=== PATIENT | female | born 1960 | race Caucasian/White ===

== ENCOUNTER 2018-06-28 21:59 | Inpatient (IN) | payer MEDICAID ==
[~2018-06-28] VITALS: Ht 180.3 cm; Wt 140.0 kg
[2018-06-28] MEDS ORDERED: cloNIDine HCL 0.1 MG TAB PO ONE (22:30)
[2018-06-28 23:06] LABS: Basophils # (auto) 0.1 uL; Lymphocytes # (auto) 1.6 uL; Monocytes # (auto) 0.6 uL
[2018-06-28 23:08] LABS: Eosinophils # (auto) 0.2 uL; Eosinophils % (auto) 3.1 % (0.0-7.0); Hematocrit 34.5 % (36.0-46.0); Hemoglobin 11.4 g/dL (12.2-16.2); Lymphocytes % (auto) 21.5 % (10.0-50.0); Mean Corpuscular Hemoglobin 24.7 pg (28.0-32.0); Mean Corpuscular Volume 74.9 fL (80.0-100.0); Monocytes % (auto) 8.7 % (0.0-12.0); Neutrophils # (auto) 4.8 uL; Neutrophils % (auto) 65.7 % (37.0-80.0); Nucleated Red Blood Cells % 0.3 %; Platelet Count (auto) 191 10^3/uL (140-450); Red Blood Cells 4.61 10^6/uL (4.0-5.20); Red Cell Distribution Width 17.2 % (11.8-14.3); White Blood Cell 7.3 10^3/uL (4.4-10.8)
[2018-06-28 23:24] LABS: INR 0.97 (0.9-1.15); Partial Thromboplastin Time 29.1 sec (23.78-33.04); Prothrombin Time 10.4 sec (9.27-12.13)
[2018-06-28 23:29] LABS: Alanine Aminotransferase 38 U/L (13-56); Albumin 3.4 g/dL (3.4-5.0); Anion Gap 9 (5-15); Aspartate Aminotransferase 36 U/L (15-37); BUN/Creatinine Ratio 11.7; Blood Urea Nitrogen 11 mg/dL (7-18); Calcium 8.1 mg/dL (8.5-10.1); Carbon Dioxide 29 mmol/L (21-32); Chloride 100 mmol/L (98-107); GFR African American 79 mL/min; GFR Non-African American 65 mL/min; Glucose 102 mg/dL (74-106); Magnesium 2.5 mg/dL (1.6-2.6); Potassium 3.8 mmol/L (3.5-5.1); Sodium 138 mmol/L (136-145)
[2018-06-28] MEDS ORDERED: LEVOFLOXACIN 750MG 150 ML IV ONE (23:30)
[2018-06-28 23:34] LABS: Alkaline Phosphatase 104 U/L (45-117); Bilirubin, Total 1.2 mg/dL (0.2-1.0); Total Protein 8.1 g/dL (6.4-8.2)
[2018-06-29] MEDS ORDERED: IPRATROPIUM BROM 0.5 MG/2.5ML INH SOL NEB ONE
[2018-06-29] MEDS ORDERED: ALBUTEROL SULF 2.5 MG/0.5ML(0.5%) NEB SOLN NEB ONE
[2018-06-29] MEDS ORDERED: DOCUSATE SOD 100 MG CAP PO PRN (01:30)
[2018-06-29] MEDS ORDERED: ONDANSETRON HCL 4 MG/2 ML VIAL IV PRN (01:30)
[2018-06-29 03:33] LABS: Urine Bacteria MANY /hpf (None Seen); Urine Blood Negative /uL (Negative); Urine Mucus FEW (None Seen); Urine Specific Gravity 1.024 (1.001-1.035); Urine WBC 23 /hpf (0 - 5)
[2018-06-29] MEDS: ALBUTEROL SULF 2.5 MG/0.5ML(0.5%) NEB SOLN NEB PRN ×2 (06:59→10:59)
[2018-06-29] MEDS: IPRATROPIUM BROM 0.5 MG/2.5ML INH SOL NEB PRN ×2 (06:59→10:59)
[2018-06-29 09:34] VITALS: BP 144/83
[2018-06-29] MEDS: ENOXAPARIN SOD 40 MG/0.4 ML SYRINGE SC SCH ×2 (09:59→20:57)
[2018-06-29] MEDS ORDERED: FAMOTIDINE 20 MG TAB PO SCH (10:00)
[2018-06-29 12:08] VITALS: BP 141/76
[2018-06-29] MEDS ORDERED: AZITHROMYCIN 250 MG TAB PO ONE (12:45)
[2018-06-29] MEDS ORDERED: IPRATROPIUM BROM 0.5 MG/2.5ML INH SOL NEB SCH (14:00)
[2018-06-29] MEDS ORDERED: ALBUTEROL SULF 2.5 MG/0.5ML(0.5%) NEB SOLN NEB SCH (14:00)
[2018-06-29 16:51] VITALS: BP 148/83
[2018-06-29] MEDS: methylPREDNISolone SOD SUCC 125 MG/2 ML VL IV SCH (17:51)
[2018-06-29] MEDS ORDERED: PANT40T PO (17:57)
[2018-06-29] MEDS ORDERED: LEVO-28 PO (17:57)
[2018-06-29] MEDS ORDERED: CYCL1TAB18 PO (17:57)
[2018-06-29] MEDS ORDERED: GABA300C10 PO (17:57)
[2018-06-29] MEDS ORDERED: POTA10TA51 PO (17:57)
[2018-06-29] MEDS ORDERED: AZIT250T8 PO (17:57)
[2018-06-29] MEDS ORDERED: NYSTOIN10 TOP (17:57)
[2018-06-29] MEDS ORDERED: LOSA-46 PO (17:57)
[2018-06-29] MEDS ORDERED: BUDE0.5S IN (17:57)
[2018-06-29] MEDS: ALBUTEROL SULF 2.5 MG/0.5ML(0.5%) NEB SOLN NEB SCH (19:28)
[2018-06-29] MEDS: IPRATROPIUM BROM 0.5 MG/2.5ML INH SOL NEB SCH (19:28)
[2018-06-29 20:00] VITALS: BP 180/104
[2018-06-29] MEDS: cloNIDine HCL 0.1 MG TAB PO PRN (20:57)
[2018-06-29 22:00] VITALS: BP 180/104
[2018-06-29] MEDS: BUDESONIDE (INHALATION) 0.5 MG/2 ML NEB NEB SCH (22:08)
[2018-06-30] MEDS: methylPREDNISolone SOD SUCC 125 MG/2 ML VL IV SCH ×5 (02:01→23:46)
[2018-06-30] MEDS: LEVOFLOXACIN 500MG 100 ML IV SCH ×2 (02:01→23:46)
[2018-06-30] MEDS ORDERED: CYCLOBENZAPRINE HCL 10 MG TAB PO ONE (03:00)
[2018-06-30] MEDS: cloNIDine HCL 0.1 MG TAB PO PRN ×3 (03:50→18:09)
[2018-06-30 05:00] VITALS: BP 138/86
[2018-06-30 05:01] LABS: Basophils # (auto) 0 uL; Eosinophils # (auto) 0 uL; Eosinophils % (auto) 0.1 % (0.0-7.0); Hematocrit 32.8 % (36.0-46.0); Hemoglobin 10.8 g/dL (12.2-16.2); Lymphocytes # (auto) 0.5 uL; Monocytes # (auto) 0.1 uL; Neutrophils # (auto) 4.1 uL; Nucleated Red Blood Cells % 0.1 %; White Blood Cell 4.7 10^3/uL (4.4-10.8)
[2018-06-30 05:02] LABS: Basophils % (auto) 0.1 % (0.0-2.0); Lymphocytes % (auto) 11.1 % (10.0-50.0); Mean Corpuscular Hemoglobin 24.7 pg (28.0-32.0); Mean Corpuscular Hgb Conc. 32.9 g/dL (32.0-36.0); Monocytes % (auto) 1.5 % (0.0-12.0); Neutrophils % (auto) 87.2 % (37.0-80.0); Platelet Count (auto) 178 10^3/uL (140-450); Red Blood Cells 4.37 10^6/uL (4.0-5.20); Red Cell Distribution Width 16.8 % (11.8-14.3)
[2018-06-30 05:22] LABS: Albumin 3.2 g/dL (3.4-5.0); Calcium 9.1 mg/dL (8.5-10.1); Potassium 4.1 mmol/L (3.5-5.1)
[2018-06-30 05:25] LABS: BUN/Creatinine Ratio 10.1; Bilirubin, Total 0.8 mg/dL (0.2-1.0); Total Protein 7.9 g/dL (6.4-8.2)
[2018-06-30] MEDS: ALBUTEROL SULF 2.5 MG/0.5ML(0.5%) NEB SOLN NEB SCH ×6 (06:24→18:48)
[2018-06-30] MEDS: IPRATROPIUM BROM 0.5 MG/2.5ML INH SOL NEB SCH ×6 (06:24→18:48)
[2018-06-30 08:00] VITALS: BP 185/115
[2018-06-30 08:55] VITALS: BP 185/115
[2018-06-30] MEDS ORDERED: AZITHROMYCIN 250 MG TAB PO SCH (10:00)
[2018-06-30] MEDS: LOSARTAN POTASSIUM 50 MG TAB PO SCH (10:07)
[2018-06-30] MEDS: ENOXAPARIN SOD 40 MG/0.4 ML SYRINGE SC SCH ×2 (10:07→22:05)
[2018-06-30] MEDS ORDERED: amLODIPine BESYLATE 5 MG TAB PO ONE (10:15)
[2018-06-30] MEDS: BUDESONIDE (INHALATION) 0.5 MG/2 ML NEB NEB SCH ×2 (10:28→18:48)
[2018-06-30 13:00] VITALS: BP 142/72
[2018-06-30 17:00] VITALS: BP 162/90
[2018-06-30 21:30] VITALS: BP 137/66
[2018-07-01] MEDS: ALBUTEROL SULF 2.5 MG/0.5ML(0.5%) NEB SOLN NEB SCH ×8 (02:26→18:47)
[2018-07-01] MEDS: IPRATROPIUM BROM 0.5 MG/2.5ML INH SOL NEB SCH ×8 (02:26→18:48)
[2018-07-01 05:00] VITALS: BP 132/80
[2018-07-01] MEDS: methylPREDNISolone SOD SUCC 125 MG/2 ML VL IV SCH ×3 (05:37→17:29)
[2018-07-01] MEDS: BUDESONIDE (INHALATION) 0.5 MG/2 ML NEB NEB SCH ×2 (06:23→18:48)
[2018-07-01 08:00] VITALS: BP 137/66
[2018-07-01 09:00] VITALS: BP 137/76
[2018-07-01] MEDS: LOSARTAN POTASSIUM 50 MG TAB PO SCH (10:33)
[2018-07-01] MEDS: amLODIPine BESYLATE 5 MG TAB PO SCH (10:34)
[2018-07-01] MEDS: HYDROcodone-ACET 5/325MG TAB PO PRN ×2 (10:34→21:03)
[2018-07-01] MEDS: ENOXAPARIN SOD 40 MG/0.4 ML SYRINGE SC SCH ×2 (10:34→21:34)
[2018-07-01 13:00] VITALS: BP 147/77
[2018-07-01 17:00] VITALS: BP 133/93
[2018-07-01] MEDS: TEMAZEPAM 15 MG CAP PO PRN (21:34)
[2018-07-01 22:00] VITALS: BP 157/77
[2018-07-02] MEDS: LEVOFLOXACIN 500MG 100 ML IV SCH (00:25)
[2018-07-02] MEDS: methylPREDNISolone SOD SUCC 125 MG/2 ML VL IV SCH ×4 (00:25→17:05)
[2018-07-02 05:00] VITALS: BP 117/85
[2018-07-02] MEDS: IPRATROPIUM BROM 0.5 MG/2.5ML INH SOL NEB SCH ×9 (05:02→23:26)
[2018-07-02] MEDS: ALBUTEROL SULF 2.5 MG/0.5ML(0.5%) NEB SOLN NEB SCH ×9 (05:02→23:26)
[2018-07-02 09:00] VITALS: BP 165/98
[2018-07-02] MEDS: LOSARTAN POTASSIUM 50 MG TAB PO SCH (10:06)
[2018-07-02] MEDS: amLODIPine BESYLATE 5 MG TAB PO SCH (10:06)
[2018-07-02] MEDS: ENOXAPARIN SOD 40 MG/0.4 ML SYRINGE SC SCH ×2 (10:07→22:28)
[2018-07-02] MEDS ORDERED: FURO40TA4 PO (10:17)
[2018-07-02] MEDS: BUDESONIDE (INHALATION) 0.5 MG/2 ML NEB NEB SCH ×2 (10:25→19:25)
[2018-07-02 13:00] VITALS: BP 153/100
[2018-07-02 13:42] VITALS: BP 165/98
[2018-07-02 16:45] VITALS: BP 148/89
[2018-07-02] MEDS: HYDROcodone-ACET 5/325MG TAB PO PRN (17:05)
[2018-07-02 22:00] VITALS: BP 140/85
[2018-07-03] MEDS: LEVOFLOXACIN 500MG 100 ML IV SCH
[2018-07-03 05:00] VITALS: BP 167/98
[2018-07-03] MEDS: methylPREDNISolone SOD SUCC 125 MG/2 ML VL IV SCH ×4 (05:54→18:26)
[2018-07-03] MEDS: HYDROcodone-ACET 5/325MG TAB PO PRN ×2 (06:38→20:29)
[2018-07-03] MEDS: IPRATROPIUM BROM 0.5 MG/2.5ML INH SOL NEB SCH ×6 (07:00→19:31)
[2018-07-03] MEDS: BUDESONIDE (INHALATION) 0.5 MG/2 ML NEB NEB SCH ×2 (07:01→19:28)
[2018-07-03] MEDS: ALBUTEROL SULF 2.5 MG/0.5ML(0.5%) NEB SOLN NEB SCH ×5 (07:01→19:28)
[2018-07-03] MEDS: amLODIPine BESYLATE 5 MG TAB PO SCH (08:22)
[2018-07-03] MEDS: LOSARTAN POTASSIUM 50 MG TAB PO SCH (08:22)
[2018-07-03] MEDS: ENOXAPARIN SOD 40 MG/0.4 ML SYRINGE SC SCH ×2 (08:23→20:58)
[2018-07-03 09:00] VITALS: BP 175/102
[2018-07-03 13:00] VITALS: BP 157/87
[2018-07-03] MEDS: cloNIDine HCL 0.1 MG TAB PO PRN (16:37)
[2018-07-03 16:51] VITALS: BP 188/103
[2018-07-03] MEDS: TEMAZEPAM 15 MG CAP PO PRN (20:29)
[2018-07-03 22:00] VITALS: BP 145/90
[2018-07-04] MEDS: LEVOFLOXACIN 500MG 100 ML IV SCH
[2018-07-04] MEDS: IPRATROPIUM BROM 0.5 MG/2.5ML INH SOL NEB SCH ×4 (00:51→18:48)
[2018-07-04] MEDS: ALBUTEROL SULF 2.5 MG/0.5ML(0.5%) NEB SOLN NEB SCH ×3 (00:51→18:48)
[2018-07-04 05:00] VITALS: BP 178/116
[2018-07-04] MEDS: HYDROcodone-ACET 5/325MG TAB PO PRN (05:55)
[2018-07-04] MEDS: methylPREDNISolone SOD SUCC 125 MG/2 ML VL IV SCH ×3 (05:56→12:00)
[2018-07-04 08:25] VITALS: BP 162/94
[2018-07-04 09:00] VITALS: BP 162/94
[2018-07-04] MEDS: amLODIPine BESYLATE 5 MG TAB PO SCH (09:50)
[2018-07-04] MEDS: ENOXAPARIN SOD 40 MG/0.4 ML SYRINGE SC SCH ×2 (09:50→21:36)
[2018-07-04] MEDS: LOSARTAN POTASSIUM 50 MG TAB PO SCH (09:50)
[2018-07-04] MEDS: BUDESONIDE (INHALATION) 0.5 MG/2 ML NEB NEB SCH ×2 (10:37→18:48)
[2018-07-04 13:00] VITALS: BP 135/73
[2018-07-04 17:05] VITALS: BP 145/71
[2018-07-04 22:00] VITALS: BP 164/83
[2018-07-05] MEDS: ACETAMINOPHEN 325 MG TAB PO PRN ×2 (02:32→10:33)
[2018-07-05 05:00] VITALS: BP 150/70
[2018-07-05] MEDS: ALBUTEROL SULF 2.5 MG/0.5ML(0.5%) NEB SOLN NEB SCH ×4 (05:53→19:06)
[2018-07-05] MEDS: IPRATROPIUM BROM 0.5 MG/2.5ML INH SOL NEB SCH ×4 (05:53→19:06)
[2018-07-05] MEDS: cloNIDine HCL 0.1 MG TAB PO PRN (08:23)
[2018-07-05 08:30] VITALS: BP 179/103
[2018-07-05 09:00] VITALS: BP 179/103
[2018-07-05] MEDS: predniSONE 20 MG TAB PO SCH (10:34)
[2018-07-05] MEDS: LOSARTAN POTASSIUM 50 MG TAB PO SCH (10:35)
[2018-07-05] MEDS: ENOXAPARIN SOD 40 MG/0.4 ML SYRINGE SC SCH ×2 (10:36→22:00)
[2018-07-05] MEDS: amLODIPine BESYLATE 5 MG TAB PO SCH (10:36)
[2018-07-05] MEDS: BUDESONIDE (INHALATION) 0.5 MG/2 ML NEB NEB SCH ×2 (11:04→19:06)
[2018-07-05 13:00] VITALS: BP 135/76
[2018-07-05] MEDS ORDERED: FUROSEMIDE 40 MG TAB PO ONE (16:15)
[2018-07-05] MEDS ORDERED: CYCLOBENZAPRINE HCL 10 MG TAB PO PRN (16:15)
[2018-07-05] MEDS ORDERED: guaiFENesin-DM 100/10mg/5ml SYR PO PRN (16:15)
[2018-07-05 16:31] VITALS: BP 124/60
[2018-07-05 22:00] VITALS: BP 126/61
[2018-07-05] MEDS: GABAPENTIN 300 MG CAP PO SCH (22:00)
[2018-07-06 05:00] VITALS: BP 133/72
[2018-07-06] MEDS: GABAPENTIN 300 MG CAP PO SCH ×2 (05:38→15:22)
[2018-07-06] MEDS: ALBUTEROL SULF 2.5 MG/0.5ML(0.5%) NEB SOLN NEB SCH ×3 (05:40→14:09)
[2018-07-06] MEDS: IPRATROPIUM BROM 0.5 MG/2.5ML INH SOL NEB SCH ×3 (05:40→14:09)
[2018-07-06 08:28] VITALS: BP 148/84
[2018-07-06] MEDS: amLODIPine BESYLATE 5 MG TAB PO SCH (08:58)
[2018-07-06] MEDS: predniSONE 20 MG TAB PO SCH (08:59)
[2018-07-06] MEDS: ENOXAPARIN SOD 40 MG/0.4 ML SYRINGE SC SCH (08:59)
[2018-07-06] MEDS: LOSARTAN POTASSIUM 50 MG TAB PO SCH (08:59)
[2018-07-06 09:46] LABS: BUN/Creatinine Ratio 24.2; Calcium 8.7 mg/dL (8.5-10.1); Potassium 4.1 mmol/L (3.5-5.1)
[2018-07-06] MEDS ORDERED: FUROSEMIDE 40 MG TAB PO SCH (10:00)
[2018-07-06] MEDS ORDERED: POTASSIUM CHL 10 Meq TABLET PO SCH (10:00)
[2018-07-06] MEDS ORDERED: PANTOPRAZOLE 40 MG TAB PO SCH (10:00)
[2018-07-06] MEDS: BUDESONIDE (INHALATION) 0.5 MG/2 ML NEB NEB SCH (10:02)
[2018-07-06 13:00] VITALS: BP 118/53
[2018-07-06 13:51] VITALS: BP 118/53
[2018-07-06 17:12] VITALS: BP 126/66
== END 2018-07-06 21:00 | disposition home or self-care (01) | DRG 139 ==
LOC: ER 21:59 → TELE 22:00 → TELE-CENTR 06-29 08:50 → CENTRAL 07-05 02:08
PROVIDERS: ADMIT Nurse Practitioner; ATTEND Internal Medicine Pulmonary Disease
DX: J18.9 Pneumonia, unspecified organism (principal); J84.9 Interstitial pulmonary disease, unspecified; J96.10 Chronic respiratory failure, unspecified whether with hypoxia or hypercapnia; J44.1 Chronic obstructive pulmonary disease with (acute) exacerbation; I11.0 Hypertensive heart disease with heart failure; I50.32 Chronic diastolic (congestive) heart failure; J44.0 Chronic obstructive pulmonary disease with (acute) lower respiratory infection; E44.1 Mild protein-calorie malnutrition; R04.2 Hemoptysis; E66.01 Morbid (severe) obesity due to excess calories; J20.8 Acute bronchitis due to other specified organisms; E78.5 Hyperlipidemia, unspecified; N39.0 Urinary tract infection, site not specified; Z59.0 Homelessness; Z87.891 Personal history of nicotine dependence; Z68.41 Body mass index [BMI] 40.0-44.9, adult; Z88.1 Allergy status to other antibiotic agents; Z88.0 Allergy status to penicillin; Z88.2 Allergy status to sulfonamides; Z91.018 Allergy to other foods; Z90.49 Acquired absence of other specified parts of digestive tract
CPT/HCPCS: 36415; 71045; 71250; 80048; 80053; 81001; 83735; 83880; 84484; 85025; 85610; 85730; 87070; 87086; 87205; 93005; 94640; 96365; A6257; G0378; J1956

== ENCOUNTER 2018-08-04 15:33 | Emergency (ER) | payer MEDICAID ==
[~2018-08-04] VITALS: Ht 167.6 cm; Wt 128.8 kg
[~2018-08-04 15:33] MED LIST: BUDE0.5S IN; CYCL1TAB18 PO; FURO40TA4 PO; GABA300C10 PO; LOSA-46 PO; NYSTOIN10 TOP; PANT40T PO; POTA10TA51 PO
[2018-08-04 15:43] VITALS: BP 143/80
[2018-08-04] MEDS ORDERED: methylPREDNISolone SOD SUCC 125 MG/2 ML VL IV ONE (15:45)
== END 2018-08-04 17:19 | disposition home or self-care (01) ==
LOC: ER 15:36
DX: J44.9 Chronic obstructive pulmonary disease, unspecified (principal); E78.5 Hyperlipidemia, unspecified; I10 Essential (primary) hypertension; E07.9 Disorder of thyroid, unspecified; Z90.49 Acquired absence of other specified parts of digestive tract; Z98.890 Other specified postprocedural states
CPT/HCPCS: 71045; 93005; 94761; 96374; 99283; J2930

== ENCOUNTER 2018-08-11 11:55 | Emergency (ER) | payer MEDICAID ==
[~2018-08-11] VITALS: Ht 167.6 cm; Wt 128.8 kg
[2018-08-11 13:13] VITALS: BP 154/94
== END 2018-08-11 13:22 | disposition home or self-care (01) ==
LOC: ER 11:57
DX: J44.9 Chronic obstructive pulmonary disease, unspecified (principal); E78.5 Hyperlipidemia, unspecified; E07.9 Disorder of thyroid, unspecified; I11.0 Hypertensive heart disease with heart failure; I50.9 Heart failure, unspecified; Z90.49 Acquired absence of other specified parts of digestive tract; Z59.0 Homelessness
CPT/HCPCS: 93005

== ENCOUNTER 2018-11-26 16:10 | Emergency (ER) | payer MEDICAID ==
[~2018-11-26] VITALS: Ht 167.6 cm; Wt 127.0 kg
[~2018-11-26 16:10] MED LIST changes: +ALBUAER3 IN; +ASPI81CH43 PO; +CAR3125T PO; -CYCL1TAB18 PO; -FURO40TA4 PO; +IPRIH IN; -NYSTOIN10 TOP; -POTA10TA51 PO; +PRED-559 PO
[2018-11-26 16:55] LABS: Basophils # (auto) 0.1 uL; Eosinophils # (auto) 0.1 uL; Eosinophils % (auto) 0.9 % (0.0-7.0); Hematocrit 37.4 % (36.0-46.0); Lymphocytes % (auto) 20.6 % (10.0-50.0); Mean Corpuscular Hemoglobin 23.6 pg (28.0-32.0); Mean Corpuscular Hgb Conc. 32.2 g/dL (32.0-36.0); Mean Corpuscular Volume 73.4 fL (80.0-100.0); Monocytes % (auto) 10.4 % (0.0-12.0); Neutrophils # (auto) 6.5 uL; Neutrophils % (auto) 67.1 % (37.0-80.0); Nucleated Red Blood Cells % 0.2 %; Platelet Count (auto) 193 10^3/uL (140-450); Red Cell Distribution Width 17.1 % (11.8-14.3); White Blood Cell 9.7 10^3/uL (4.4-10.8)
[2018-11-26 17:07] LABS: Albumin 3.3 g/dL (3.4-5.0); BUN/Creatinine Ratio 26.5; Calcium 8.4 mg/dL (8.5-10.1); Magnesium 2.5 mg/dL (1.6-2.6); Potassium 3.5 mmol/L (3.5-5.1)
[2018-11-26 17:12] LABS: Bilirubin, Total 0.5 mg/dL (0.2-1.0); Total Protein 7.3 g/dL (6.4-8.2)
[2018-11-26] MEDS ORDERED: ALBUTEROL SULF 2.5 MG/0.5ML(0.5%) NEB SOLN NEB ONE (23:45)
[2018-11-26] MEDS ORDERED: IPRATROPIUM BROM 0.5 MG/2.5ML INH SOL NEB ONE (23:45)
[2018-11-27 04:50] VITALS: BP 156/76
== END 2018-11-27 03:26 | disposition home or self-care (01) ==
LOC: ER 16:11
DX: J18.9 Pneumonia, unspecified organism (principal); J44.9 Chronic obstructive pulmonary disease, unspecified; I13.0 Hypertensive heart and chronic kidney disease with heart failure and stage 1 through stage 4 chronic kidney disease, or unspecified chronic kidney disease; N18.3 Chronic kidney disease, stage 3 (moderate); I50.9 Heart failure, unspecified; K21.9 Gastro-esophageal reflux disease without esophagitis; E78.5 Hyperlipidemia, unspecified; I10 Essential (primary) hypertension; E07.9 Disorder of thyroid, unspecified; Z90.49 Acquired absence of other specified parts of digestive tract
CPT/HCPCS: 36415; 36600; 71045; 80053; 82805; 83735; 84484; 85025; 93005; 94640; 99284; J7611; J7644

== ENCOUNTER 2019-03-03 21:05 | Inpatient (IN) | payer MEDICAID ==
[~2019-03-03] VITALS: Ht 167.6 cm; Wt 127.2 kg
[2019-03-03 22:00] LABS: Basophils # (auto) 0 uL; Basophils % (auto) 0.3 % (0.0-2.0); Hemoglobin 12.6 g/dL (12.2-16.2); Monocytes # (auto) 0.7 uL
[2019-03-03 22:02] LABS: Eosinophils # (auto) 0.2 uL; Eosinophils % (auto) 1.9 % (0.0-7.0); Hematocrit 38.6 % (36.0-46.0); Lymphocytes # (auto) 1.9 uL; Lymphocytes % (auto) 21.8 % (10.0-50.0); Mean Corpuscular Hemoglobin 24.3 pg (28.0-32.0); Mean Corpuscular Hgb Conc. 32.7 g/dL (32.0-36.0); Mean Corpuscular Volume 74.2 fL (80.0-100.0); Monocytes % (auto) 8.1 % (0.0-12.0); Neutrophils % (auto) 67.9 % (37.0-80.0); Nucleated Red Blood Cells % 0.3 %; Platelet Count (auto) 157 10^3/uL (140-450); Red Cell Distribution Width 17.3 % (11.8-14.3); White Blood Cell 8.9 10^3/uL (4.4-10.8)
[2019-03-03 22:17] LABS: Albumin 3.5 g/dL (3.4-5.0); Anion Gap 8 (5-15); BUN/Creatinine Ratio 21.4; Blood Urea Nitrogen 21 mg/dL (7-18); Calcium 8.7 mg/dL (8.5-10.1); Carbon Dioxide 24 mmol/L (21-32); Chloride 106 mmol/L (98-107); GFR African American 75 mL/min; GFR Non-African American 62 mL/min; Glucose 101 mg/dL (74-106); Magnesium 2.4 mg/dL (1.6-2.6); Potassium 4.4 mmol/L (3.5-5.1); Sodium 138 mmol/L (136-145)
[2019-03-03 22:22] LABS: Alanine Aminotransferase 15 U/L (13-56); Alkaline Phosphatase 103 U/L (45-117); Aspartate Aminotransferase 14 U/L (15-37); Bilirubin, Total 0.9 mg/dL (0.2-1.0); Total Protein 8.1 g/dL (6.4-8.2)
[2019-03-04] MEDS ORDERED: ONDANSETRON HCL 4 MG/2 ML VIAL IV ONE (03:15)
[2019-03-04] MEDS ORDERED: SODIUM CHLORIDE 0.9% 1,000 ML IV ONE ×2 (03:15→08:11)
[2019-03-04] MEDS ORDERED: cloNIDine HCL 0.1 MG TAB PO ONE (03:15)
[2019-03-04] MEDS ORDERED: HYDROcodone-ACET 5/325MG TAB PO ONE (04:15)
[2019-03-04 04:18] LABS: Amylase 55 U/L (25-115); Lipase 174 U/L (73-393)
[2019-03-04 04:18] LABS: Urine Bacteria FEW /hpf (None Seen); Urine Blood Negative /uL (Negative); Urine Mucus FEW (None Seen); Urine Specific Gravity 1.023 (1.001-1.035); Urine WBC <1 /hpf (0 - 5)
[2019-03-04] MEDS ORDERED: IBUPROFEN 600 MG TAB PO ONE (04:30)
[2019-03-04] MEDS ORDERED: SODIUM CHLORIDE 0.9% 500 ML IVB ONE (08:11)
[2019-03-04] MEDS ORDERED: KETOROLAC TROMETH 15 mg/ml 1ML VL IV ONE (08:15)
[2019-03-04] MEDS ORDERED: PROMETHAZINE HCL 25 MG/ML 1ML IV PRN ×2 (08:15→11:30)
[2019-03-04] MEDS ORDERED: KETOROLAC TROMETH 60MG/2ML VIAL ONE (10:02)
[2019-03-04] MEDS ORDERED: metroNIDAZOLE 500MG/100ML 100 ML IV ONE (10:15)
[2019-03-04] MEDS ORDERED: VANCOMYCIN HCL 500MG/5ML ORAL SOL PO ONE (10:15)
[2019-03-04] MEDS ORDERED: MORPHINE SULF INJ 2 MG/ML SYRINGE 1ML IV PRN (11:30)
[2019-03-04] MEDS ORDERED: TEMAZEPAM 15 MG CAP PO PRN (11:30)
[2019-03-04] MEDS ORDERED: ACETAMINOPHEN 500 MG TAB PO PRN (11:30)
[2019-03-04] MEDS ORDERED: NITROGLYCERIN 0.4 MG SL TAB SL PRN (11:30)
[2019-03-04] MEDS ORDERED: ALBUTEROL SULF 2.5 MG/0.5ML(0.5%) NEB SOLN NEB PRN (11:30)
[2019-03-04] MEDS ORDERED: traMADol HCL 50 MG TAB PO PRN (11:30)
[2019-03-04] MEDS: IPRATROPIUM BROM 0.5 MG/2.5ML INH SOL NEB SCH ×2 (13:01→19:06)
[2019-03-04] MEDS: ALBUTEROL SULF 2.5 MG/0.5ML(0.5%) NEB SOLN NEB SCH ×2 (13:01→19:06)
[2019-03-04 13:42] VITALS: BP 141/76
--- NOTE | 2019-03-04 14:00 | NUR ---
Telemetry admit from ER ANHARSHAD PARHAM admitted to Telemetry unit after SBAR received. Patient oriented to KYLAH ISIDRO RN primary RN, unit, room, bed, and unit policies regarding patient care and visiting hours. Patient now on continuous telemetry monitoring, tele box #25 and telemetry reading on arrival to unit is sinus rhythm at 67 bpm. Patient placed on bedside oxygen, weighed by bed scale and encouraged to call if they need something. All questions and concerns addressed, patient verbalized understanding.
[2019-03-04] MEDS ORDERED: FURO20TA3 PO (15:17)
[2019-03-04] MEDS ORDERED: HCTZ25T PO (15:17)
[2019-03-04] MEDS ORDERED: BACL5TAB2 PO (15:17)
[2019-03-04 16:00] VITALS: BP 150/86
[2019-03-04] MEDS: metroNIDAZOLE 500MG/100ML 100 ML IV SCH ×2 (16:03→22:11)
[2019-03-04] MEDS: GABAPENTIN 300 MG CAP PO SCH ×2 (16:04→22:12)
[2019-03-04 22:00] VITALS: BP 141/76
[2019-03-04] MEDS: CARVEDILOL 3.125 MG TAB PO SCH (22:12)
[2019-03-05] MEDS: IPRATROPIUM BROM 0.5 MG/2.5ML INH SOL NEB SCH ×4 (00:42→19:14)
[2019-03-05] MEDS: ALBUTEROL SULF 2.5 MG/0.5ML(0.5%) NEB SOLN NEB SCH ×4 (00:42→19:14)
[2019-03-05 05:35] VITALS: BP 146/82
[2019-03-05] MEDS: metroNIDAZOLE 500MG/100ML 100 ML IV SCH (06:28)
[2019-03-05] MEDS: GABAPENTIN 300 MG CAP PO SCH ×3 (06:28→21:57)
[2019-03-05] MEDS ORDERED: LEVOTHYROXINE SODIUM 50 MCG TAB PO SCH (07:00)
[2019-03-05 08:57] VITALS: BP 135/84
[2019-03-05] MEDS ORDERED: predniSONE 5 MG TAB PO SCH (10:00)
[2019-03-05] MEDS ORDERED: PANTOPRAZOLE 40 MG TAB PO SCH (10:00)
[2019-03-05] MEDS: PANTOPRAZOLE 40 MG TAB PO SCH (11:25)
[2019-03-05] MEDS: ASPirin 81 mg TAB PO SCH (11:26)
[2019-03-05] MEDS: LOSARTAN POTASSIUM 50 MG TAB PO SCH (11:26)
[2019-03-05] MEDS: CARVEDILOL 3.125 MG TAB PO SCH ×2 (11:26→21:57)
[2019-03-05] MEDS: methylPREDNISolone SOD SUCC 125 MG/2 ML VL IV SCH ×2 (11:27→21:56)
[2019-03-05 12:12] VITALS: BP 132/72
[2019-03-05 16:55] VITALS: BP 123/63
--- NOTE | 2019-03-05 19:30 | NUR ---
Opening Shift Note Assumed care of patient, awake and alert. Family at bedside. No S/S of distress/SOB or pain. Bed locked in lowest position, side rails upx2, call light within reach. Instructed on POC and to call for assist PRN, will continue to monitor for changes Q1hr and PRN.
[2019-03-05 21:04] VITALS: BP 140/71
--- NOTE | 2019-03-06 00:47 | NUR ---
PT REFUSED NEB TX AT THIS TIME. PT IS SLEEPING. NO RESP DISTRESS NOTED AT THIS TIME.
[2019-03-06 05:00] VITALS: BP 153/84
[2019-03-06] MEDS: GABAPENTIN 300 MG CAP PO SCH (06:11)
[2019-03-06] MEDS: ALBUTEROL SULF 2.5 MG/0.5ML(0.5%) NEB SOLN NEB SCH ×3 (06:24→11:47)
[2019-03-06] MEDS: IPRATROPIUM BROM 0.5 MG/2.5ML INH SOL NEB SCH ×3 (06:24→11:47)
[2019-03-06] MEDS ORDERED: LEVOTHYROXINE SODIUM 25 MCG TAB PO SCH (07:00)
[2019-03-06 08:38] VITALS: BP 128/69
[2019-03-06] MEDS: PANTOPRAZOLE 40 MG TAB PO SCH (09:46)
[2019-03-06] MEDS: ASPirin 81 mg TAB PO SCH (09:47)
[2019-03-06] MEDS: methylPREDNISolone SOD SUCC 125 MG/2 ML VL IV SCH (09:48)
[2019-03-06] MEDS: LOSARTAN POTASSIUM 50 MG TAB PO SCH (09:50)
[2019-03-06] MEDS: CARVEDILOL 3.125 MG TAB PO SCH (09:51)
[2019-03-06] MEDS ORDERED: ENOXAPARIN SOD 40 MG/0.4 ML SYRINGE SC SCH (10:00)
[2019-03-06 10:06] LABS: Hepatitis B Surface Antibody Negative
[2019-03-06 10:33] LABS: Hepatitis A Total Antibody Negative
--- NOTE | 2019-03-06 11:00 | NUR ---
DR STALIN ALEXANDRE
[2019-03-06 12:08] VITALS: BP 128/69
[2019-03-06 13:14] VITALS: BP 118/64
--- NOTE | 2019-03-06 13:18 | NUR ---
DISCHARGE SIGNED WOUND PHOTO TAKEN FOR DISCHARGE. PATIENT IS AWARE [facility] PRESCRIPTIONS [facility] STAIRS THAT ARE READY TO SPOT FACER. PATIENT VERBALIZED UNDERSTANDING AND WILL GO DOWN STAIRS TO PICK THEM UP.
--- NOTE | 2019-03-06 13:32 | NUR ---
Discharge instructions given as ordered. Encourage to follow up with PMD as instructed. All questions and concerns addressed. Patient verbalized understanding. Medication reconciliation form completed and copy given to patient. NO Home medications held in Pharmacy and none to be returned to patient, and no needed vaccines given. IV removed with catheter intact, pressure dressing applied. Telemetry unit returned to ICU. Patient taken to vehicle via personal motorized wheelchair with all personal belongings, accompanied by family members. No distress noted at time of departure. 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
[2019-03-06 14:35] LABS: Hepatitis B Core IgM Negative
[2019-03-06 14:36] LABS: Hepatitis A Ab IgM Negative; Hepatitis B Surface Antigen Negative (Negative)
[2019-03-06 16:37] LABS: Hepatitis B Core Total AB Positive
[2019-03-06 16:38] LABS: Hepatitis C Antibody Positive (Negative)
--- NOTE | 2019-03-06 16:42 | NUR ---
RECEIVED A CALL FROM [facility] GON[facility] DUNN, PATIENT POSITIVE FOR HEP C AND HEP B TOTAL CORE. REPORTED TO DR GANT. PATIENT AT THE TIME OF RESULTS HAS BEEN DISCHARGED AND UNABLE TO REACH.
--- NOTE | 2019-03-06 17:00 | NUR ---
Received referral that pt is homeless. Pt is alert and oriented times 3. Pt states she is not homeless. She states she receives SSI and so do her adult children who live with her. Pt states she lives in a monthly motel with her grown children.
--- NOTE | 2019-03-06 17:13 | NUR ---
Received referral to see pt. Pt is alert and oriented. Pt states she is not homeless. Pt lives in a motel with her 2 adult children. Pt stated that they all receive SSI. She has transportation on discharge.
== END 2019-03-06 13:30 | disposition home or self-care (01) | DRG 241 ==
LOC: ER 21:12 → TELE 21:13 → TELE-CENTR 03-04 15:00
PROVIDERS: ADMIT Internal Medicine; ATTEND Internal Medicine
DX: K29.70 Gastritis, unspecified, without bleeding (principal); J96.10 Chronic respiratory failure, unspecified whether with hypoxia or hypercapnia; E11.22 Type 2 diabetes mellitus with diabetic chronic kidney disease; R53.2 Functional quadriplegia; R16.1 Splenomegaly, not elsewhere classified; E66.01 Morbid (severe) obesity due to excess calories; I13.0 Hypertensive heart and chronic kidney disease with heart failure and stage 1 through stage 4 chronic kidney disease, or unspecified chronic kidney disease; I50.9 Heart failure, unspecified; N18.9 Chronic kidney disease, unspecified; K76.0 Fatty (change of) liver, not elsewhere classified; J44.9 Chronic obstructive pulmonary disease, unspecified; E78.5 Hyperlipidemia, unspecified; K21.9 Gastro-esophageal reflux disease without esophagitis; E03.9 Hypothyroidism, unspecified; G89.29 Other chronic pain; B19.20 Unspecified viral hepatitis C without hepatic coma; Z91.14 Patient's other noncompliance with medication regimen; Z90.49 Acquired absence of other specified parts of digestive tract; Z88.0 Allergy status to penicillin; Z59.0 Homelessness; Z99.3 Dependence on wheelchair; Z88.2 Allergy status to sulfonamides; Z88.8 Allergy status to other drugs, medicaments and biological substances; Z91.018 Allergy to other foods; Z79.899 Other long term (current) drug therapy; Z68.45 Body mass index [BMI] 70 or greater, adult
CPT/HCPCS: 36415; 71045; 74176; 80053; 80074; 81001; 82150; 83690; 83735; 83880; 84439; 84443; 84484; 85025; 86703; 86704; 86706; 86708; 86803; 87045; 87340; 87899; 93005; 94640; 96361; 96365; 96375; G0378; J1885; J3490

== ENCOUNTER 2019-04-01 14:54 | Emergency (ER) | payer MEDICAID ==
[~2019-04-01] VITALS: Ht 167.6 cm; Wt 131.5 kg
[~2019-04-01 14:54] MED LIST changes: +BACL5TAB2 PO; -BUDE0.5S IN; +FURO20TA3 PO; +HCTZ25T PO; -LOSA-46 PO; +LOSA-69 PO; -PANT40T PO
[2019-04-01 16:27] LABS: Basophils # (auto) 0 uL; Eosinophils # (auto) 0.1 uL; Hemoglobin 12.6 g/dL (12.2-16.2); Monocytes # (auto) 0.6 uL; Nucleated Red Blood Cells % 0.2 %; Platelet Count (auto) 168 10^3/uL (140-450)
[2019-04-01 16:28] LABS: Basophils % (auto) 0.2 % (0.0-2.0); Eosinophils % (auto) 1.1 % (0.0-7.0); Hematocrit 38.1 % (36.0-46.0); Lymphocytes # (auto) 0.8 uL; Lymphocytes % (auto) 9.1 % (10.0-50.0); Mean Corpuscular Volume 72.8 fL (80.0-100.0); Monocytes % (auto) 6.2 % (0.0-12.0); Neutrophils # (auto) 7.7 uL; Neutrophils % (auto) 83.4 % (37.0-80.0); Red Blood Cells 5.23 10^6/uL (4.0-5.20); Red Cell Distribution Width 17.5 % (11.8-14.3); White Blood Cell 9.3 10^3/uL (4.4-10.8)
[2019-04-01 16:44] LABS: Alanine Aminotransferase 15 U/L (13-56); Albumin 3.6 g/dL (3.4-5.0); Amylase 62 U/L (25-115); Anion Gap 10 (5-15); Aspartate Aminotransferase 14 U/L (15-37); BUN/Creatinine Ratio 18.7; Blood Urea Nitrogen 17 mg/dL (7-18); Carbon Dioxide 25 mmol/L (21-32); Chloride 107 mmol/L (98-107); GFR African American 81 mL/min; GFR Non-African American 67 mL/min; Glucose 100 mg/dL (74-106); Lipase 190 U/L (73-393); Potassium 4.1 mmol/L (3.5-5.1); Sodium 142 mmol/L (136-145)
[2019-04-01 16:49] LABS: Alkaline Phosphatase 100 U/L (45-117); Bilirubin, Total 1.1 mg/dL (0.2-1.0); Total Protein 7.9 g/dL (6.4-8.2)
[2019-04-01] MEDS ORDERED: PROMETHAZINE HCL 25 MG/ML 1ML IV ONE (22:45)
[2019-04-01] MEDS ORDERED: SODIUM CHLORIDE 0.9% 1,000 ML IV ONE (22:45)
[2019-04-02 03:01] LABS: Urine Bacteria NONE SEEN /hpf (None Seen); Urine Blood Negative /uL (Negative); Urine Mucus FEW (None Seen); Urine Specific Gravity 1.016 (1.001-1.035); Urine WBC 2 /hpf (0 - 5)
[2019-04-02 03:02] VITALS: BP 156/88
== END 2019-04-02 04:23 | disposition home or self-care (01) ==
LOC: ER 14:58
DX: K52.9 Noninfective gastroenteritis and colitis, unspecified (principal); J44.9 Chronic obstructive pulmonary disease, unspecified; K21.9 Gastro-esophageal reflux disease without esophagitis; E78.5 Hyperlipidemia, unspecified; I13.0 Hypertensive heart and chronic kidney disease with heart failure and stage 1 through stage 4 chronic kidney disease, or unspecified chronic kidney disease; N18.9 Chronic kidney disease, unspecified; I50.9 Heart failure, unspecified; E07.9 Disorder of thyroid, unspecified; Z88.0 Allergy status to penicillin; Z88.2 Allergy status to sulfonamides; Z91.018 Allergy to other foods; Z79.899 Other long term (current) drug therapy; Z90.49 Acquired absence of other specified parts of digestive tract
CPT/HCPCS: 36415; 74176; 80053; 81001; 82150; 83690; 83880; 84484; 85025; 93005; 94761; 96361; 96374; 99284; J2550; J7030

== ENCOUNTER 2019-04-03 21:36 | Emergency (ER) | payer MEDICAID ==
[~2019-04-03] VITALS: Ht 167.6 cm; Wt 124.7 kg
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
--- NOTE | 2019-04-04 12:03 | NUR ---
I called [facility] Truck Was[employer] Vandana [phone] and left message asking about oxygen supplier for this patient, asking for call back SHARON-awaiting return call.
[2019-04-04 12:18] VITALS: BP 150/90
--- NOTE | 2019-04-04 16:36 | NUR ---
I received a call back from Vandana at [facility], she said that patient's oxygen was ordered through [facility] phone number [phone].
--- NOTE | 2019-04-04 16:39 | NUR ---
re-assessment I had received a page from Bess stating that patient is refusing to leave the exam room and what should they do. I informed Bess that if they need patient to leave exam room they need to call security. I never informed Bess that I wanted patient to wait in waiting room. Daria wrapper caser is following up on tool design draftsperson with [facility]. Addendum: 04/04/19 at 1642 by Becky DOWD Amended: Links added.
--- NOTE | 2019-04-05 09:41 | NUR ---
I called provided phone number for patient [phone] and left her a message with the contact information for [facility] to call regarding missing equipment.
== END 2019-04-04 12:20 | disposition home or self-care (01) ==
LOC: ER 21:40
DX: R53.1 Weakness (principal); J44.9 Chronic obstructive pulmonary disease, unspecified; I13.0 Hypertensive heart and chronic kidney disease with heart failure and stage 1 through stage 4 chronic kidney disease, or unspecified chronic kidney disease; N18.9 Chronic kidney disease, unspecified; I50.9 Heart failure, unspecified; K21.9 Gastro-esophageal reflux disease without esophagitis; E78.5 Hyperlipidemia, unspecified; Z86.39 Personal history of other endocrine, nutritional and metabolic disease; Z90.49 Acquired absence of other specified parts of digestive tract

== ENCOUNTER 2019-10-23 01:07 | Emergency (ER) | payer MEDICAID ==
[~2019-10-23] VITALS: Ht 167.6 cm; Wt 124.3 kg
[~2019-10-23 01:07] MED LIST changes: +LEVO500T21 PO; +POTA-220 PO; +PRE5T PO; -PRED-559 PO
[2019-10-23] MEDS ORDERED: ALBUTEROL SULF 2.5 MG/0.5ML(0.5%) NEB SOLN NEB ONE (01:30)
[2019-10-23] MEDS ORDERED: IPRATROPIUM BROM 0.5 MG/2.5ML INH SOL NEB ONE (01:30)
[2019-10-23 02:23] LABS: Basophils # (auto) 0.1 uL; Basophils % (auto) 0.6 % (0.0-2.0); Eosinophils # (auto) 0.1 uL; Eosinophils % (auto) 1.4 % (0.0-7.0); Hematocrit 36.4 % (36.0-46.0); Hemoglobin 11.6 g/dL (12.2-16.2); Lymphocytes # (auto) 2.4 uL; Lymphocytes % (auto) 27.1 % (10.0-50.0); Mean Corpuscular Hemoglobin 25.4 pg (28.0-32.0); Mean Corpuscular Volume 79.5 fL (80.0-100.0); Monocytes # (auto) 1.1 uL; Monocytes % (auto) 12.1 % (0.0-12.0); Neutrophils # (auto) 5.2 uL; Neutrophils % (auto) 58.8 % (37.0-80.0); Nucleated Red Blood Cells % 0.1 %; Platelet Count (auto) 201 10^3/uL (140-450); Red Blood Cells 4.58 10^6/uL (4.0-5.20); Red Cell Distribution Width 17.9 % (11.8-14.3); White Blood Cell 8.8 10^3/uL (4.4-10.8)
[2019-10-23] MEDS ORDERED: IPRATROPIUM BROM 0.5 MG/2.5ML INH SOL HHN ONE (02:30)
[2019-10-23] MEDS ORDERED: methylPREDNISolone SOD SUCC 125 MG/2 ML VL IV ONE (02:30)
[2019-10-23] MEDS ORDERED: ALBUTEROL SULF 2.5 MG/0.5ML(0.5%) NEB SOLN HHN ONE (02:30)
[2019-10-23 02:40] LABS: Alanine Aminotransferase 38 U/L (13-56); Albumin 3.8 g/dL (3.4-5.0); Anion Gap 9 (5-15); Aspartate Aminotransferase 39 U/L (15-37); BUN/Creatinine Ratio 30.1; Blood Urea Nitrogen 37 mg/dL (7-18); Carbon Dioxide 31 mmol/L (21-32); Chloride 98 mmol/L (98-107); GFR African American 57 mL/min; GFR Non-African American 47 mL/min; Glucose 116 mg/dL (74-106); Potassium 3.4 mmol/L (3.5-5.1); Sodium 138 mmol/L (136-145)
[2019-10-23 02:46] LABS: Alkaline Phosphatase 103 U/L (45-117); Bilirubin, Total 0.7 mg/dL (0.2-1.0); Total Protein 8.7 g/dL (6.4-8.2)
[2019-10-23] MEDS ORDERED: predniSONE 20 MG TAB PO ONE (04:30)
[2019-10-23] MEDS ORDERED: NIFEdipine 10 MG CAP PO ONE (05:45)
[2019-10-23 06:00] VITALS: BP 146/67
== END 2019-10-23 06:16 | disposition home or self-care (01) ==
LOC: ER 01:10
DX: J44.1 Chronic obstructive pulmonary disease with (acute) exacerbation (principal); I13.2 Hypertensive heart and chronic kidney disease with heart failure and with stage 5 chronic kidney disease, or end stage renal disease; N18.9 Chronic kidney disease, unspecified; I50.9 Heart failure, unspecified; Z90.89 Acquired absence of other organs; Z90.49 Acquired absence of other specified parts of digestive tract
CPT/HCPCS: 36415; 36600; 71045; 80053; 82805; 83735; 83880; 84484; 85025; 93005; 94640; 99285; J7512; J7611; J7644

== ENCOUNTER 2022-03-04 19:32 | Inpatient (IN) | payer MEDICAID ==
[~2022-03-04] VITALS: Ht 165.1 cm; Wt 151.0 kg
[~2022-03-04 19:32] MED LIST changes: -HCTZ25T PO; +HYDR25TA5 PO; -LEVO500T21 PO; +LEVO500T31 PO
[2022-03-04 21:02] LABS: Basophils # (auto) 0.1 10 ^3/uL (0-0.2); Eosinophils # (auto) 0.1 10 ^3/uL (0-0.8); Monocytes # (auto) 0.5 10 ^3/uL (0-1.3)
[2022-03-04 21:05] LABS: Basophils % (auto) 0.9 % (0.0-2.0); Hematocrit 34.9 % (36.0-46.0); Lymphocytes # (auto) 1.4 10 ^3/uL (0.4-5.4); Lymphocytes % (auto) 19.9 % (10.0-50.0); Mean Corpuscular Hgb Conc. 31.5 g/dL (32.0-36.0); Mean Corpuscular Volume 73.2 fL (80.0-100.0); Monocytes % (auto) 7.4 % (0.0-12.0); Neutrophils # (auto) 4.8 10 ^3/uL (1.6-8.6); Neutrophils % (auto) 69.8 % (37.0-80.0); Nucleated Red Blood Cells % 0.1 %; Red Blood Cells 4.77 10^6/uL (4.0-5.20); Red Cell Distribution Width 17.1 % (11.8-14.3); White Blood Cell 6.9 10^3/uL (4.4-10.8)
[2022-03-04 21:21] LABS: Albumin 3.4 g/dL (3.4-5.0); BUN/Creatinine Ratio 10.3; Calcium 8.8 mg/dL (8.5-10.1); Potassium 3.3 mmol/L (3.5-5.1)
[2022-03-04 21:23] LABS: Bilirubin, Total 0.7 mg/dL (0.2-1.0)
[2022-03-05] MEDS ORDERED: FUROSEMIDE 40 MG/4 ML VIAL IV ONE (02:45)
[2022-03-05 03:07] LABS: Urine Bacteria MOD /hpf (None Seen); Urine Blood Negative /uL (Negative); Urine Mucus FEW (None Seen); Urine Specific Gravity 1.029 (1.001-1.035); Urine WBC 5 /hpf (0 - 5)
[2022-03-05] MEDS ORDERED: ALBUTEROL SULF 2.5 MG/0.5ML(0.5%) NEB SOLN NEB PRN (04:15)
[2022-03-05] MEDS ORDERED: ONDANSETRON HCL 4 MG/2 ML VIAL IV PRN (04:15)
[2022-03-05] MEDS ORDERED: NITROGLYCERIN 0.4 MG SL TAB SL PRN (04:15)
[2022-03-05] MEDS ORDERED: MORPHINE SULFATE INJ 2 MG/ml SYRG IV PRN ×2 (04:15)
[2022-03-05] MEDS ORDERED: hydrALAZINE HCL 20 MG/ML VL IV PRN ×2 (04:15)
[2022-03-05] MEDS: FUROSEMIDE 20 MG/2 ML VIAL IV SCH ×2 (06:15→18:17)
[2022-03-05 07:17] LABS: Basophils # (auto) 0 10 ^3/uL (0-0.2)
[2022-03-05 07:19] LABS: Basophils % (auto) 0.4 % (0.0-2.0); Eosinophils # (auto) 0.1 10 ^3/uL (0-0.8); Eosinophils % (auto) 1.7 % (0.0-7.0); Hematocrit 35.4 % (36.0-46.0); Hemoglobin 11.3 g/dL (12.2-16.2); Lymphocytes # (auto) 1.4 10 ^3/uL (0.4-5.4); Lymphocytes % (auto) 18.7 % (10.0-50.0); Mean Corpuscular Hemoglobin 23.9 pg (28.0-32.0); Mean Corpuscular Hgb Conc. 32.1 g/dL (32.0-36.0); Mean Corpuscular Volume 74.6 fL (80.0-100.0); Monocytes # (auto) 0.6 10 ^3/uL (0-1.3); Monocytes % (auto) 8.3 % (0.0-12.0); Neutrophils # (auto) 5.4 10 ^3/uL (1.6-8.6); Neutrophils % (auto) 70.9 % (37.0-80.0); Nucleated Red Blood Cells % 0.2 %; Red Blood Cells 4.75 10^6/uL (4.0-5.20); Red Cell Distribution Width 17.4 % (11.8-14.3); White Blood Cell 7.6 10^3/uL (4.4-10.8)
[2022-03-05 07:29] LABS: BUN/Creatinine Ratio 11.3
[2022-03-05] MEDS: LOSARTAN POTASSIUM 50 MG TAB PO SCH (09:25)
[2022-03-05] MEDS: CARVEDILOL 3.125 MG TAB PO SCH ×2 (09:25→22:23)
[2022-03-05] MEDS: POTASSIUM CHL 20 Meq TABLET PO SCH (09:26)
[2022-03-05] MEDS: ENOXAPARIN SOD 40 MG/0.4 ML SYRINGE SC SCH (09:26)
[2022-03-05] MEDS: ASPirin-EC 81 mg tab PO SCH (09:26)
[2022-03-05] MEDS ORDERED: METOPROLOL TARTRATE 25 MG TAB PO SCH (10:00)
[2022-03-05] MEDS ORDERED: ENOXAPARIN SOD 40 MG/0.4 ML SYRINGE SC SCH (10:00)
[2022-03-05] MEDS ORDERED: HYDROcodone-ACET 5/325MG TAB PO PRN (13:15)
[2022-03-05 17:00] VITALS: BP 111/63
[2022-03-05 19:17] VITALS: BP 111/63
[2022-03-05 22:00] VITALS: BP 125/55
[2022-03-05] MEDS ORDERED: ATORVASTATIN 20 MG TAB PO SCH (22:00)
[2022-03-06 05:00] VITALS: BP 129/61
[2022-03-06] MEDS: FUROSEMIDE 20 MG/2 ML VIAL IV SCH (05:33)
[2022-03-06 08:00] VITALS: BP 138/60
[2022-03-06] MEDS: POTASSIUM CHL 20 Meq TABLET PO SCH (10:02)
[2022-03-06] MEDS: ASPirin-EC 81 mg tab PO SCH (10:03)
[2022-03-06] MEDS: CARVEDILOL 3.125 MG TAB PO SCH (10:03)
[2022-03-06] MEDS: LOSARTAN POTASSIUM 50 MG TAB PO SCH (10:03)
[2022-03-06] MEDS: ENOXAPARIN SOD 40 MG/0.4 ML SYRINGE SC SCH (10:04)
[2022-03-06 12:00] VITALS: BP 141/64
[2022-03-06] MEDS ORDERED: POTA-220 PO (15:34)
[2022-03-06] MEDS ORDERED: FURO20TA3 PO (15:34)
[2022-03-06 16:00] VITALS: BP 140/75
[2022-03-06] MEDS ORDERED: FUROSEMIDE 40 MG/4 ML VIAL IV ONE (16:15)
[2022-03-06 16:43] VITALS: BP 141/64
[2022-03-06] MEDS ORDERED: FUROSEMIDE 40 MG/4 ML VIAL IV SCH (18:00)
== END 2022-03-06 18:51 | disposition home or self-care (01) | DRG 194 ==
LOC: ER 19:32 → TELE 03-05 04:02 → TELE-EAST 03-05 15:37
PROVIDERS: ADMIT Hospitalist; ATTEND Hospitalist
DX: I13.0 Hypertensive heart and chronic kidney disease with heart failure and stage 1 through stage 4 chronic kidney disease, or unspecified chronic kidney disease (principal); J96.10 Chronic respiratory failure, unspecified whether with hypoxia or hypercapnia; E66.2 Morbid (severe) obesity with alveolar hypoventilation; Z68.43 Body mass index [BMI] 50.0-59.9, adult; I50.33 Acute on chronic diastolic (congestive) heart failure; M19.90 Unspecified osteoarthritis, unspecified site; G62.9 Polyneuropathy, unspecified; J44.9 Chronic obstructive pulmonary disease, unspecified; R07.89 Other chest pain; K21.9 Gastro-esophageal reflux disease without esophagitis; E78.5 Hyperlipidemia, unspecified; Z20.822 Contact with and (suspected) exposure to COVID-19; E87.6 Hypokalemia; G89.29 Other chronic pain; N18.9 Chronic kidney disease, unspecified; Z59.00 Homelessness unspecified; Z83.3 Family history of diabetes mellitus
CPT/HCPCS: 36415; 71045; 80048; 80053; 81001; 83880; 84484; 85025; 93005; 93306; 94640; 96372; 96374; 96376; G0378